=== PATIENT | male | born 1980 ===

== ENCOUNTER → 2017-01-03 12:10 | Day surgery (SDC) | payer OTHER ==
--- NOTE | 2016-12-26 12:12 | HP ---
CC: Dr. Ahn * DATE OF ADMISSION: 01/03/2017. This patient is scheduled for Same Day Surgery admission by Dr. Gandara. DATE OF PREOPERATIVE HISTORY AND PHYSICAL EXAMINATION: Monday, December 26, 2016. ATTENDING SURGEON: Dr. Bertin Gandara * (dictated by Karen Castro NP). CHIEF COMPLAINT: Left inguinal hernia. HISTORY OF PRESENT ILLNESS: The patient is a 36-year-old male referred to Dr. Gandara from Dr. Ahn for evaluation of pain in the left groin. The patient reports that he has had left groin pain for several months, but recently it has become more uncomfortable. He does heavy outdoor work including farming and notices increased discomfort after strenuous activity. He denies any signs or symptoms that would suggest incarceration or strangulation. Dr. Gandara examined the patient and notes tenderness at the left internal ring and a faint bulging with Valsalva maneuver consistent with a small left inguinal hernia. Dr. Gandara discussed the findings with the patient and the various methods of surgical repair and the patient has opted for open repair of the left inguinal hernia with mesh as a same day surgery procedure. Dr. Gandara described the nature of the surgical procedure and the relevants risks and benefits, and today I reviewed the typical postoperative care and recovery. The patient has had a chance to ask questions and stated that he understands the information and is satisfied with the answers given to his questions. He will sign surgical consent on the day of surgery. PAST MEDICAL HISTORY: He is generally healthy, although he has had some chronic back discomfort over time. PAST SURGICAL HISTORY: Two shoulder surgeries. MEDICATIONS: No active medications. ALLERGIES: No known drug allergies. FAMILY HISTORY: No known anesthesia complications, bleeding tendencies, or clotting disorders. SOCIAL HISTORY: He is . He has never been a smoker. He drinks one to two alcoholic beverages per week and denies the use of other substances. 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 REVIEW OF SYSTEMS: Constitutional: No recent illnesses. Cardiovascular: No chest pain, palpitations, or history of cardiac conditions. Respiratory: No chronic cough. No recent upper respiratory illnesses. Gastrointestinal: No gastrointestinal complaints. No symptoms to suggest incarceration or strangulation of the left inguinal hernia. Genitourinary: No dysuria. No history of kidney stones. Hematologic: No bleeding tendencies. Has never received a blood transfusion. No history of deep vein thrombosis or pulmonary embolism. Musculoskeletal: Chronic back discomfort and shoulder surgeries. Neurologic: No complaints or conditions. The patient denies any previous anesthesia complications and has never received a blood transfusion. PHYSICAL EXAMINATION GENERAL: The patient is a 36-year-old male, well-developed, well-nourished, in no acute distress. VITAL SIGNS: Temperature 98.6, blood pressure 108/80, pulse 72 and regular, respiratory rate 18. Height 71 inches, weight approximately 210 pounds. SKIN: Warm, dry, intact. HEENT: Benign. NECK: Supple. No cervical lymphadenopathy. BACK: No CVA tenderness. LUNGS: Breath sounds bilaterally clear and equal. HEART: Regular rate and rhythm. No murmurs or rubs appreciated. ABDOMEN: Active bowel sounds, soft and nondistended. Nontender throughout. No obvious masses, organomegaly, or evidence of umbilical hernia. Inguinal exam as done by Dr. Gandara revealed tenderness at the left internal ring and a faint bulging consistent with a small left inguinal hernia. No right inguinal hernia and the testes are normally descended without obvious masses. EXTREMITIES: Warm without edema or skin ulceration. RECTAL: Deferred. NEUROLOGIC: Alert and oriented times three. Steady gait. IMPRESSION: Left inguinal hernia. PLAN: Same Day Surgery admission to Dr. Gandara's service on January2016 for open repair of left inguinal hernia with mesh. TOTAL TIME SPENT: One hour with greater than 50 percent in [id number] patient history taking and patient education. ALEK CASTRO NP [id number]/[facility] #: [id number] ARCHIE
[~2017-01-03 12:10] MED LIST: Buffered Lidocaine 0.9% SYRIN* 5 ML/SYR SYRINGE INTRADERM ONE; Buffered Lidocaine 0.9% SYRIN* 5 ML/SYR SYRINGE ONE; Bupivacaine 0.5% W/EPI SDV* 10 ML VIAL INJ ONE; Dexamethasone IV* 4 MG/ML 1 ML (4 MG) ONE; Famotidine IV* 10 MG/ML 2 ML (20 mg) IV ONE; Famotidine IV* 10 MG/ML 2 ML (20 mg) ONE; KETAMINE HCL* 50 MG/ML 10 ML VIAL ONE; Ketorolac INJ* 30 MG/ML 1 ML VIAL ONE; Lidocaine 1% INJ* 10 MG/ML 30 ML SDV ONE; Lidocaine 2% PF * 5 ML VIAL ONE; Metoclopramide TAB* 10 MG ONE; Metoclopramide TAB* 10 MG PO ONE; Midazolam* 1 MG/ML 2 ML VIAL (2 MG) ONE; Midazolam* 1 MG/ML 5 ML VIAL (5 MG) ONE; Ondansetron INJ* 2 MG/ML VIAL IV PRN; Ondansetron INJ* 2 MG/ML VIAL ONE; Propofol* 10 MG/ML 20 ML BTL IV PUSH ONE; ceFAZolin 2 GM PREMIX(*) 2 GM/50 ML BAG IVPB ONE; fentaNYL* 50 MCG/ML 2 ML VIAL (100 MCG VIAL) IV PRN; fentaNYL* 50 MCG/ML 2 ML VIAL (100 MCG VIAL) ONE; oxyCODONE/Acetamin 5/325 MG* TAB ONE; oxyCODONE/Acetamin 5/325 MG* TAB PO PRN
[2017-01-03 16:11] VITALS: BP 111/80
--- NOTE | 2017-01-04 05:54 | OP ---
CC: Dr. Ahn * DATE OF OPERATION: 01/03/17 - [facility] DATE OF : 80 SURGEON: Bertin Gandara MD WELDING MACHINE OPERATOR SUBMERGED ARC: RIUZ Stewart ANESTHESIOLOGIST: Dr. Daniel. ANESTHESIA: General anesthetic, local infiltration. PRE-OP DIAGNOSIS: Left inguinal hernia. POST-OP DIAGNOSIS: Left inguinal hernia. OPERATIVE PROCEDURE: Open repair of left inguinal hernia with mesh. DESCRIPTION OF PROCEDURE: Patient was supine on the operating table after adequate anesthesia. Left groin was clipped and prepped with antiseptic, draped in a sterile fashion. Local infiltrative anesthesia was administered and approximately 7 cm left inguinal incision was created. Dissection carried down to the external oblique, which was opened in the direction of its fibers. Cord structures were encircled with a Epifanio drain, tented upward. The direct space was laxed, but there was no discrete hernia. There was a small indirect hernia, which was dissected free and reduced. A cone mesh plug was placed into the internal ring, sutured there with 2-0 Polysorb. A second piece of mesh was placed over the inguinal floor, sutured at the tubercle at the transverse abdominis at the inguinal ligament. Tails were split, brought around the cord structures and tacked down laterally. External oblique was closed over top with 2-0 Polysorb, Marnie's with 3- 0 Polysorb and skin with 4-0 Surgipro. He tolerated the procedure well, was awakened, and brought to recovery in good condition. There were no complications. No drains. No pathologic specimens. Sponge and instrument counts correct. Estimated blood is 10 mL. [id number]/[facility] #: [id number] [facility]
== END | disposition home or self-care (01) ==
LOC: OR 12:10
PROVIDERS: ATTEND Surgery
DX: K40.90 Unilateral inguinal hernia, without obstruction or gangrene, not specified as recurrent (principal)
CPT/HCPCS: A9270-GY; C1781; J0690; J1100; J1885; J2001; J2250; J2405; J2704; J3010

== ENCOUNTER 2017-03-02 15:48 | Emergency (ER) | payer OTHER ==
--- NOTE | 2017-03-02 16:55 | RAD ---
INDICATION: Cough. Chest pain. COMPARISON: None TECHNIQUE: PA and lateral dual-energy views were obtained. FINDINGS: Bones/Soft Tissues: There are no acute bony findings. Cardiomediastinal: The cardiomediastinal silhouette is normal. Lungs: There are no infiltrates. Pleura: There are no pleural effusions. Other: None IMPRESSION: NORMAL CHEST.
[2017-03-02 16:58] LABS: Hematocrit 47 % (42-52); Hemoglobin 16.3 g/dl (14.0-18.0); Mean Corpuscular HGB Conc 35 g/dl (31-36); Mean Corpuscular Hemoglobin 30 pg (27-31); Mean Corpuscular Volume 86 fL (80-94); Mean Platelet Volume 7 um3 (7.4-10.4); Red Blood Count 5.53 10^6/ul (4.0-5.4); Red Cell Distribution Width 13 % (10.5-15); White Blood Count 8.2 10^3/ul (3.5-10.8)
[2017-03-02 17:03] LABS: Albumin 4.6 g/dL (3.2-5.2); BUN/Creatinine Ratio 11.5 (8-20); Calcium 9.7 mg/dL (8.6-10.3); EGFR African American 127.7 (>60); EGFR Non-African American 99.3 (>60); Globulin 3.1 g/dL (2-4); Potassium 3.6 mmol/L (3.5-5.0); Total Bilirubin 0.8 mg/dL (0.2-1.0); Total Protein 7.7 g/dL (6.4-8.9)
[2017-03-02] MEDS ORDERED: Iohexol 350* (CONTRAST) 500 ML MDV IV ONE (17:26)
--- NOTE | 2017-03-02 17:46 | RAD ---
INDICATION: Chest pain. Short of breath. Evaluate for pulmonary embolus. COMPARISON: Chest x-ray March 02, 2017 TECHNIQUE: Axial source images were obtained from the thoracic inlet to the hemidiaphragms following administration of [address] angiographic technique was utilized. Coronal and sagittal reconstructed images were acquired. CHEST FINDINGS: Neck/thyroid: The visualized neck to include the thyroid appear normal. Chest wall: There are no acute abnormalities of the bony thorax or chest wall. There is no supraclavicular, infraclavicular, or axillary lymphadenopathy. Lungs : There are no pulmonary parenchymal masses or infiltrates. The pulmonary interstitium appears normal. There are no endobronchial lesions. Cardiomediastinal structures: There is no CT evidence of acute pulmonary embolic disease. The heart is normal in size. There is no pericardial effusion. There is no evidence of aortic aneurysm or dissection. There is no mediastinal or hilar adenopathy. The esophagus appears normal. Pleura : There are no pleural-based masses or effusions. Other: None. IMPRESSION: NO CT EVIDENCE OF ACUTE PULMONARY EMBOLIC DISEASE. LUNGS CLEAR.
[2017-03-02] MEDS ORDERED: Albuterol/Ipratropium NEB.SOL* Albuterol 2.5 MG/Ipratropium 0.5 MG 3 ML INH ONE (18:36)
[2017-03-02] MEDS ORDERED: predniSONE TAB* 20 MG PO ONE (20:38)
[2017-03-03 00:48] VITALS: BP 137/96
--- NOTE | 2017-03-08 12:35 | ED ---
Jeff Hong Nilda, scribed for Jeferson Lam MD on 03/02/17 at 1629 . Respiratory - HPI Summary HPI Summary: Patient is 36 y.o. M referred by [facility] presenting to [facility] with a chief complaint of SOB for the past week. [facility] concerned for PE due to reduced physical activity (surgery 6 weeks ago) and CXR results. Symptoms exacerbated by bending over and minimal exertion. Symptoms alleviated by nothing. Patient reports cough (sick contact with kids), wheezing, upper back pain (chronic), and chest congestion when lying down (past two nights). He denies rhinorrhea, headache, fever, diaphoresis, leg pain, and chills. Patient is currently not on pain medication. PMHx bronchitis and asthma. FHx asthma. - History of Current Complaint Chief Complaint: EDShortnessOfBreath Stated Complaint: SOB-SENT FROM Time Seen by Provider: 03/02/17 16:09 Hx Obtained From: Patient Onset/Duration: Gradual Onset, Lasting Weeks, Still Present Timing: Constant Current Severity: Moderate Pain Intensity: 0 Character: Wheezing, Cough (Nonproductive), Dyspnea on Exertion - dyspnea on limited exertion (bending over) Aggravating Factor(s): Exertion Alleviating Factor(s): Nothing Associated Signs and Symptoms: SOB, Wheezing, Chest Pain with Cough - Allergy/Home Medications Allergies/Adverse Reactions: Allergies Allergy/AdvReac Type Severity Reaction Status Date / Time No Known Allergies Allergy Verified 01/03/17 12:17 PMH/Surg Hx/FS Hx/Imm Hx Respiratory History: Reports: Hx Asthma, Hx Chronic Bronchitis GI History: Reports: Other GI Disorders - LEFT INGUINAL HERNIA SINCE 11/17 History: Reports: Hx Kidney Stones - 2011, 2012 Musculoskeletal History: Reports: Other Musculoskeletal History - SHOULDER PAIN BILATERAL Denies: Hx Arthritis Sensory History: Denies: Hx Contacts or Glasses, Hx Hearing Aid Opthamlomology History: Denies: Hx Contacts or Glasses - Surgical History Surgery Procedure, Year, and Place: ARTHROSCOPIC SURGERY RIGHT KNEE- 1997- . ARTHROSCOPIC SURGERY LEFT SHOULDER- 2007, 2008- Hx Anesthesia Reactions: No Infectious Disease History: No Infectious Disease History: Denies: Traveled Outside the [place] in Last 30 Days - Family History Known Family History: Positive: Respiratory Disease - Asthma - Social History Alcohol Use: Weekly Alcohol Amount: 1 GLASS WINE/WEEK Substance Use Type: Reports: None Smoking Status (MU): Never Smoked Tobacco Have You Smoked in the Last Year: No Review of Systems Negative: Fever, Chills, Skin Diaphoresis Negative: Erythema Negative: Sore Throat, Nasal Discharge Positive: Chest Pain - chest congestion when lying down Positive: Shortness Of Breath, Cough, Other - wheezing Negative: Abdominal Pain, Vomiting, Nausea Negative: dysuria, hematuria Positive: Other - upper back pain (chronic); negative leg pain. Negative: Myalgia, Edema Negative: Rash Neurological: Other - Negative dizziness Negative: Headache All Other Systems Reviewed And Are Negative: Yes Physical Exam - Summary Physical Exam Summary: Constitutional: Well-developed, Well-nourished, Alert. (-) Distressed Skin: Warm, Dry HENT: Normocephalic; Atraumatic Eyes: Conjunctiva normal Neck: Musculoskeletal ROM normal neck. (-) JVD, (-) Stridor, (-) Tracheal deviation Cardio: Rhythm regular, rate normal, Heart sounds normal; Intact distal pulses; The pedal pulses are 2+ and symmetric. Radial pulses are 2+ and symmetric. (-) Murmur Pulmonary/Chest wall: Effort normal. (-) Respiratory distress, (-) Wheezes, (-) Rales Abd: Soft, (-) Tenderness, (-) Distension, (-) Guarding, (-) Rebound Musculoskeletal: (-) Edema Lymph: (-) Cervical adenopathy Neuro: Alert, Oriented x3 Psych: Mood and affect Normal Triage Information Reviewed: Yes Vital Signs On Initial Exam: Initial Vitals Temp Pulse Resp BP Pulse Ox 97.2 F 88 16 141/87 99 03/02/17 15:55 03/02/17 15:55 03/02/17 15:55 03/02/17 15:55 03/02/17 15:55 Vital Signs Reviewed: Yes - [place] Coma Scale Coma Scale Total: 15 Diagnostics - Vital Signs Vital Signs Temp Pulse Resp BP Pulse Ox 03/02/17 15:55 97.2 F 88 16 141/87 99 - Laboratory Result Diagrams: 03/02/17 16:35 03/02/17 16:35 Lab Statement: Any lab studies that have been ordered have been reviewed, and results considered in the medical decision making process. - Radiology CXR Radiology Interpretation Completed By: Radiologist - CXR, per radiologist reveals, normal chest. ED physician reviewed report and agrees. ED physician reviewed reports and agrees. - CT Chest CTA CT Interpretation Completed By: Radiologist - Chest CTA, per radiologist, reveals no evidence of acute pulmonary embolic disease. Lungs clear. ED physician reviewed report and agrees. - EKG 2024 Cardiac Rate: NL - 68bpm EKG Rhythm: Sinus Rhythm EKG Interpretation: No STEMI Re-Evaluation - Re-Evaluation First Eval Re-Evaluation Time: 20:35 Comment: Patient remarkably improved after nebulizer and steroid treatment. Disposition - Course Course Of Treatment: Patient is 36 y.o. M referred by [facility] presenting to [facility] with a chief complaint of SOB for the past week. [facility] concerned for PE due to reduced physical activity (surgery 6 weeks ago) and CXR results. Symptoms exacerbated by bending over and minimal exertion. Symptoms alleviated by nothing. Patient reports cough (sick contact with kids), wheezing, upper back pain (chronic), and chest congestion when lying down (past two nights). He denies rhinorrhea, headache, fever, diaphoresis, leg pain, and chills. Patient is currently not on pain medication. PMHx bronchitis and asthma. FHx asthma. EKG at 2024 reveals NSR, 68bpm, and no STEMI. Chest CTA, per radiologist, reveals no evidence of acute pulmonary embolic disease. Lungs clear. CXR, per radiologist reveals, normal chest. ED physician reviewed report and agrees. ED physician reviewed reports and agrees. Patient was discharged with a diagnosis of asthma exacerbation and SOB with a follow up with PCP in 2-3 days. Patient understands and agrees to plan. - Diagnoses Provider Diagnoses: Asthma exacerbation, Shortness of breath Discharge - Discharge Plan Condition: Stable Disposition: HOME Prescriptions: Albuterol HFA INHALER* [Ventolin HFA Inhaler*] 1 - 2 puff INH Q6H PRN #1 mdi PRN Reason: Cough predniSONE TAB* [Deltasone TAB*] 50 mg PO DAILY #5 tab Patient Education Materials: Dyspnea (ED), Asthma (ED) Referrals: Dmitri Ahn MD [Primary Care Provider] - 2 Days Additional Instructions: Follow up with Primary Care in 2 days. RETURN TO THE EMERGENCY DEPARTMENT FOR CHANGING OR WORSENING SYMPTOMS. The documentation as recorded by the Jeff armenta Nilda accurately reflects the service I personally performed and the decisions made by me, Jeferson Lam MD.
== END 2017-03-02 21:10 | disposition home or self-care (01) ==
LOC: ED 15:48
DX: J44.1 Chronic obstructive pulmonary disease with (acute) exacerbation (principal)
CPT/HCPCS: 36415; 71020; 71275; 80053; 84484; 85027; 85610; 85730; 93005; 94640; 96374; 99283; A9270-GY; J7512; Q9967